=== PATIENT | female | born 1990 | race Caucasian/White ===

== ENCOUNTER → 2022-07-25 10:27 | Outpatient (CLI) | payer OTHER, MEDICAID, SELFPAY | PROVIDERS: PCP Family Medicine; Visit Provider Physician Assistant Medical | DX: H60.90 Unspecified otitis externa, unspecified ear (principal) | CPT/HCPCS: 87070; 87077; 87205 ==

== ENCOUNTER → 2022-11-01 14:00 | Outpatient (CLI) | payer OTHER, MEDICAID, SELFPAY ==
[2022-11-01 19:58] LABS: Add Manual Diff / Slide Review NO; Basophils Absolute Auto 100 /uL (0-100); Basophils Percent Auto 1.1 % (0-2); Eosinophils Absolute Auto 100 /uL (0-450); Eosinophils Percent Auto 1.3 % (2-4); Hematocrit 40.6 % (36-46); Hemoglobin 14.1 g/dL (12.0-16.0); Lymphocytes Absolute Auto 2400 /uL (1100-4500); Lymphocytes Percent Auto 26.5 % (25-40); Mean Corpuscular HGB Conc 34.7 % (30-36); Mean Corpuscular Hemoglobin 32.3 PG (26-34); Mean Corpuscular Volume 93.1 fL (80-100); Monocytes Absolute Auto 500 /uL (0-900); Monocytes Percent Auto 5.2 % (3-14); Neutrophils Absolute Auto 5900 /uL (1500-7000); Neutrophils Percent Auto 65.9 % (50-75); Platelet Count 403 X10^3/uL (150-400); Red Blood Cell Count 4.36 X10^6/uL (4.0-5.2); Red Cell Distribution Width 13.4 % (11.6-14.8)
[2022-11-01 20:27] LABS: Alanine Aminotransferase 25 IU/L (<35); Albumin 4.3 g/dL (3.5-5.0); Albumin Globulin Ratio 1.6 (1.0-2.8); Alkaline Phosphatase 97 U/L (38-126); Aspartate Aminotransferase 28 IU/L (14-36); BUN Creatinine Ratio 15.4 (6-22); Bilirubin Total 0.4 mg/dL (0.2-1.3); Blood Urea Nitrogen 12 mg/dL (7-17); Calcium 9.6 mg/dL (8.4-10.2); Carbon Dioxide 27 mmol/L (22-32); Chloride 102 mmol/L (98-107); Estimated Glomerular Filt Rate > 60 mL/min (>60); Globulin 2.7 g/dL (1.7-4.1); Glucose 82 mg/dL (70-100); HEMOLYSIS 17 (0-50); Potassium 4.4 mmol/L (3.4-5.1); Sodium 137 mmol/L (137-145)
[2022-11-01 20:59] LABS: TSH w/ Reflex to FT4 4.91 uIU/mL (0.47-4.68)
[2022-11-01 21:46] LABS: Free T4, Direct Thyroxine 0.81 ng/dL (0.78-2.19)
== END ==
PROVIDERS: PCP Family Medicine; Visit Provider Physician Assistant Medical
DX: F41.9 Anxiety disorder, unspecified (principal); H62.42 Otitis externa in other diseases classified elsewhere, left ear; H92.02 Otalgia, left ear
CPT/HCPCS: 80053; 82948; 84439; 84443; 85025

== ENCOUNTER → 2023-01-15 11:15 | Outpatient (CLI) | payer OTHER, MEDICAID, SELFPAY ==
[2023-01-15 12:02] LABS: Add Manual Diff / Slide Review NO; Basophils Absolute Auto 100 /uL (0-100); Basophils Percent Auto 0.7 % (0-2); Eosinophils Absolute Auto 0 /uL (0-450); Eosinophils Percent Auto 0.4 % (2-4); Hematocrit 38.8 % (36-46); Hemoglobin 13.6 g/dL (12.0-16.0); Lymphocytes Absolute Auto 1500 /uL (1100-4500); Lymphocytes Percent Auto 21.4 % (25-40); Mean Corpuscular Hemoglobin 32.7 PG (26-34); Mean Corpuscular Volume 93.5 fL (80-100); Monocytes Absolute Auto 400 /uL (0-900); Monocytes Percent Auto 5.5 % (3-14); Neutrophils Absolute Auto 5100 /uL (1500-7000); Platelet Count 350 X10^3/uL (150-400); Red Blood Cell Count 4.15 X10^6/uL (4.0-5.2); Red Cell Distribution Width 12.7 % (11.6-14.8); White Blood Cell Count 7.1 X10^3/uL (4.5-11.0)
[2023-01-15 12:23] LABS: Alanine Aminotransferase 25 IU/L (<35); Albumin 4.5 g/dL (3.5-5.0); Albumin Globulin Ratio 1.6 (1.0-2.8); Alkaline Phosphatase 98 U/L (38-126); Aspartate Aminotransferase 27 IU/L (14-36); BUN Creatinine Ratio 12.3 (6-22); Bilirubin Total 0.4 mg/dL (0.2-1.3); Blood Urea Nitrogen 10 mg/dL (7-17); Calcium 8.9 mg/dL (8.4-10.2); Carbon Dioxide 26 mmol/L (22-32); Chloride 102 mmol/L (98-107); Estimated Glomerular Filt Rate > 60 mL/min (>60); Globulin 2.9 g/dL (1.7-4.1); Glucose 103 mg/dL (70-100); HEMOLYSIS < 15 (0-50); Potassium 3.7 mmol/L (3.4-5.1); Sodium 136 mmol/L (137-145); Total Protein 7.4 g/dL (6.3-8.2)
[2023-01-15 12:39] LABS: HCG Quantitative /Beta subunit < 2.4 mIU/mL
[2023-01-15 12:53] LABS: TSH w/ Reflex to FT4 4.17 uIU/mL (0.47-4.68)
[2023-01-16 06:05] LABS: Labcorp Hemoglobin (Hb) A1c 5.1 % (4.8-5.6)
[2023-01-17 15:11] LABS: Lamotrigine Lamictal 4.4 ug/mL (2.0-20.0)
[2023-02-01 07:09] LABS: Methylphenidate 692 ng/mL (.); Ritalinic Acid >10000 ng/mL (.)
== END ==
PROVIDERS: PCP Family Medicine; Referring Provider Family Medicine; Visit Provider Family Medicine
DX: R42 Dizziness and giddiness (principal); N92.6 Irregular menstruation, unspecified
CPT/HCPCS: 36415; 80053; 80175; 80360; 83036; 84443; 84702; 85025

== ENCOUNTER → 2023-06-04 09:57 | Outpatient (CLI) | payer OTHER, MEDICAID, SELFPAY ==
[2023-06-04 20:29] LABS: HEMOLYSIS < 15 (0-50); Iron 108 ug/dL (37-170)
[2023-06-04 20:43] LABS: Percent Iron Saturation 33 % (15-50); Total Iron Binding Capacity 325 ug/dL (265-497); Transferrin 286 mg/dL (206-381)
[2023-06-04 20:52] LABS: Vitamin D 25 Hydroxy (D3) 35.4 ng/mL (30.0-100.0)
[2023-06-04 21:03] LABS: TSH w/ Reflex to FT4 3.22 uIU/mL (0.47-4.68)
[2023-06-04 21:13] LABS: Ferritin 27 ng/mL (6-137)
== END ==
PROVIDERS: PCP Family Medicine; Visit Provider Family Medicine
DX: G25.3 Myoclonus (principal); G47.10 Hypersomnia, unspecified
CPT/HCPCS: 82306; 82728; 83540; 83550; 84443

== ENCOUNTER → 2023-06-28 12:34 | Outpatient (CLI) | payer OTHER, MEDICAID, SELFPAY ==
--- NOTE | 2023-06-28 12:36 | DI.MRI.S_ITS ---
PROCEDURE: MR HEAD/BRAIN WO/W CON INDICATIONS: myoclonus, TECHNIQUE: Noncontrast axial T1 spin echo, axial T2 fast spin echo, sagittal and axial FLAIR, coronal T2 fast spin echo, axial gradient echo, axial diffusion and ADC through the brain. After the administration of contrast, axial and coronal and sagittal 3D VIBE or T1 spin echo with fat saturation through the brain. COMPARISON: [facility], MR, MR CERVICAL SPINE WO/W CON, 06/28/2023, 13:19. FINDINGS: Image quality: This examination is limited by involuntary motion artifact. CSF Spaces: Basal cisterns are patent. No extra-axial fluid collections. Ventricles are normal in size and shape. Brain: No midline shift. No intracranial bleeds or masses. No abnormal intracranial enhancement. The brainstem appears normal. Diffusion-weighted images demonstrate no acute infarct. No chronic ischemic insults. No abnormal white matter lesions are seen. Normal intravascular flow voids are present. Skull and face: Calvarial marrow is normal in signal. Orbits appear normal. Sinuses: Sinuses and mastoids appear clear. IMPRESSION: No imaging explanation is found for this patient's presenting symptoms. No abnormal white matter lesions are seen. No masses or abnormal enhancement can be seen. No prior territorial infarct can be seen. No findings of acute or subacute infarction can be seen. Dictated by: Josh Oshea M.D. on 06/28/2023 at 13:55 Approved by: Josh Oshea M.D. on 06/28/2023 at 13:56
--- NOTE | 2023-06-28 12:36 | DI.MRI.S_ITS ---
PROCEDURE: MR CERVICAL SPINE WO/W CON INDICATIONS: myoclonus TECHNIQUE: Noncontrast sagittal T1 spin echo and T2 fast spin echo, sagittal STIR, foraminal oblique sagittal T2 fast spin echo, axial gradient echo or T2 fast spin echo through the cervical spine. After the administration of contrast, axial and sagittal T1 spin echo with fat saturation through the cervical spine. COMPARISON: [facility], MR, MR HEAD/BRAIN WO/W CON, 06/28/2023, 13:19. FINDINGS: Image quality: This examination is limited by involuntary motion artifact. Alignment and curvature: There is overall straightening of the normal cervical lordosis. No focal AP alignment abnormality is seen. Marrow: Marrow is normal in overall signal, without suspicious enhancement. No suspicious white matter lesions are seen within the cervical cord. Spinal cord: Visualized spinal cord has normal size and signal. No cerebellar tonsillar herniation. No abnormal intramedullary enhancement. Paraspinous soft tissues: No paravertebral masses or suspicious enhancement. C2-3: Normal appearance. C3-4: Normal appearance. C4-5: Normal appearance. C5-6: The disc height and disk signal are well-preserved. Mild to moderate disc osteophyte complex is seen. Mild facet joint hypertrophy is seen. There is [id number] left-sided and mild right-sided neural foraminal narrowing. No significant central canal narrowing is seen. C6-7: The disc height and disk signal are well-preserved. A mild degree of generalized disc osteophyte complex is seen. Mild facet joint hypertrophy is seen. There is zegf-fi-fkigkxmb left-sided and no significant right-sided neural foraminal narrowing. C7-T1: Normal appearance. IMPRESSION: Focal lower cervical spine degenerative change can be seen, including [id number] neural foraminal narrowing seen on the left at C5-C6 and C6-C7. No abnormal enhancement is seen. Straightening of the normal cervical lordosis is seen, which is commonly observed in patients with muscular spasm. Dictated by: Josh Oshea M.D. on 06/28/2023 at 13:56 Approved by: Josh Oshea M.D. on 06/28/2023 at 13:59
== END ==
PROVIDERS: PCP Family Medicine; Referring Provider Family Medicine; Visit Provider Family Medicine
DX: G25.3 Myoclonus (principal); M47.812 Spondylosis without myelopathy or radiculopathy, cervical region; M48.02 Spinal stenosis, cervical region
CPT/HCPCS: 70553; 72156

== ENCOUNTER 2023-08-02 16:57 | Emergency (ER) | payer OTHER, MEDICAID, SELFPAY ==
[2023-08-02 17:00] VITALS: BP 118/70; PULSE 76; RESP 16; TEMP 36.9; O2SAT 96; BMI 34.4
--- NOTE | 2023-08-02 17:05 | ED.EXTPRO ---
HPI - Extremity Problem <Geoff Akins PA-C - Last Filed: 08/03/23 11:21> General Chief complaint: Extremity Problem,Nontraumatic Stated complaint: tore achilles tendon Time Seen by Provider: 08/02/23 17:05 Source: patient Mode of arrival: Wheelchair History of Present Illness HPI Narrative: This is a 32-year-old female presenting to the emergency department due to right calf pain. She was walking down the stairs when she heard a ?pop?. She was complaining of pain primarily in her mid calf in the right side. Denies any numbness or any other concerning signs or symptoms. Related Data Home Medications Medication Instructions Recorded Confirmed dextroamphetamine-amphetamine 10 1 tab PO BID 07/02/23 07/29/23 mg tablet Previous Rx's Medication Instructions Recorded duloxetine 20 mg capsule,delayed 40 mg (2 x 20 mg) PO DAILY #180 09/24/22 release caps aripiprazole 5 mg tablet 5 mg PO DAILY #30 tabs 02/08/23 albuterol sulfate 90 mcg/actuation 2 puff inhalation Q4-6H #8.5 grams 02/22/23 aerosol inhaler mometasone 50 mcg/actuation nasal 2 spray intranasal BID #17 grams 03/15/23 spray fluconazole 150 mg tablet 150 mg PO QWEEK #3 tabs 04/01/23 levomefolate calcium 15 mg tablet 15 mg PO DAILY #30 tabs 05/09/23 (L-Methylfolate) ipratropium bromide 42 mcg (0.06 2 spray intranasal QID #15 mL 07/29/23 %) nasal spray Allergies Allergy/AdvReac Type Severity Reaction Status Date / Time amoxicillin Allergy Intermediate Rash Verified 07/29/23 14:13 Review of Systems <Geoff Akins PA-C - Last Filed: 08/03/23 11:21> Review of Systems Narrative: GENERAL: Denies chills, fatigue, malaise, fever, sweats. HEENT: Denies sinus pain, ear pain, sore throat, difficulty swallowing, dizziness. RESPIRATORY: Denies dyspnea, cough, wheezing, hemoptysis, sputum. CARDIOVASCULAR: Denies chest pain, palpitations, orthopnea, edema, GASTROINTESTINAL: Denies nausea, vomiting, abdominal pain, diarrhea, constipation, melena. : Denies dysuria, frequency, incontinence, hematuria, urinary retention. MUSCULOSKELETAL: Reports right calf pain SKIN: Denies rash, skin lesions, or other NEUROLOGIC: Denies weakness, headache, numbness, change in speech, confusion, seizures, incoordination. PSYCHIATRIC: No concerning psychosocial issues. 12 point review of systems is negative except for those stated above Patient History <Geoff Akins PA-C - Last Filed: 08/03/23 11:21> Medical History (Updated 08/02/23 @ 18:38 by Geoff Akins PA-C) Myoclonus Unemployment OCD (obsessive compulsive disorder) Acne PTSD (post-traumatic stress disorder) Fractures Chicken pox Depression, major ADHD (attention deficit hyperactivity disorder), combined type Bipolar 1 disorder Asthma, exercise induced Surgical History (Updated 07/07/22 @ 21:02 by Angelica Crow) Anesthesia History of ankle surgery (~2017) Family History (Updated 07/07/22 @ 21:05 by Angelica Crow) Father Suicide Mental health problem Mother Mental health problem Sister History of bipolar disorder Grandfather Diabetes mellitus Grandmother History of bipolar disorder Suicide Grandmother History of heart disease Social History Smoking Status: Current every day smoker additional social history: FHX: strong FH of bipolar including sister SHX: ETOH 2 shots on most nights (states this is much less than she used to drink) + Marjuana denies other drugs currently homeless: living in a storage unit with her boyfriend unable to hold down a job due to the myoclonic jerking [facility] 01/29/2023 Smoking Status: Current every day smoker tobacco type: vaping Substance Use Type: marijuana Exam <Geoff Akins PA-C - Last Filed: 08/03/23 11:21> Narrative Exam Narrative: GENERAL: Well-developed patient, in mild distress. HEAD: Atraumatic. Normocephalic. EYES: Pupils equal round and reactive. Extraocular motions intact. No scleral icterus. No injection or drainage. ENT: Nose without bleeding, purulent drainage. Throat without erythema, tonsillar hypertrophy or exudate. Airway patent. NECK: Trachea midline. Non tender EXTREMITIES: Right calf tenderness to palpation. Patient was still able to plantar and dorsal flex at her right ankle. Neurovascularly intact throughout. Pringle test normal NEURO: AOx3. SKIN: No rash or erythema of visible areas Initial Vital Signs Initial Vital Signs: Vital Signs Temperature 98.4 F 08/02/23 17:00 Pulse Rate 76 08/02/23 17:00 Respiratory Rate 16 08/02/23 17:00 Blood Pressure 118/70 08/02/23 17:00 Pulse Oximetry 96 08/02/23 17:00 Oxygen Delivery Method Room Air 08/02/23 17:00 <Michael Vázquez DO - Last Filed: 08/03/23 13:53> Initial Vital Signs Initial Vital Signs: Vital Signs Temperature 98.4 F 08/02/23 17:00 Pulse Rate 76 08/02/23 17:00 Respiratory Rate 16 08/02/23 17:00 Blood Pressure 118/70 08/02/23 17:00 Pulse Oximetry 96 08/02/23 17:00 Oxygen Delivery Method Room Air 08/02/23 17:00 Course <Geoff Akins PA-C - Last Filed: 08/03/23 11:21> Orders Ordered: ED Orders 08/02/23 17:13 XR ankle RT min 3V Stat Vital Signs Vital signs: Vital Signs - 8 hr 08/02/23 17:00 Temperature 98.4 F Pulse Rate 76 Respiratory Rate 16 Blood Pressure 118/70 Pulse Oximetry 96 Oxygen Delivery Method Room Air <DO Demetria Herrera Last Filed: 08/03/23 13:53> Orders Ordered: ED Orders 08/02/23 17:13 XR ankle RT min 3V Stat Vital Signs Vital signs: Vital Signs - 8 hr 08/02/23 17:00 Temperature 98.4 F Pulse Rate 76 Respiratory Rate 16 Blood Pressure 118/70 Pulse Oximetry 96 Oxygen Delivery Method Room Air MDM - Extremity (Nontraumatic) <Geoff Akins PA-C - Last Filed: 08/03/23 11:21> Imaging Data Extremity x-ray #1: Radiologist's Impression: [address] [address] XRay Report Signed Patient: Kathy Pulido MR#: [id number] : 1990 Acct:[id number] Age/Sex: 32 / F Date of Service: 08/02/23 Loc: ED Accession Number: [id number] Procedure: XR ankle RT min 3V Ordering Provider: Geoff Akins P.A-C PROCEDURE: XR ANKLE RT MIN 3V INDICATIONS: R ankle pain TECHNIQUE: 3 views of the ankle were acquired. COMPARISON: None. FINDINGS: Bones: No fractures or dislocations. Ankle mortise is normally aligned. No suspicious bony lesions. Soft tissues: No tibiotalar joint effusion. Achilles tendon appears normal. IMPRESSION: No acute bony abnormality or significant effusion. If clinical symptoms persist or clinical suspicion for pathology is high, a repeat examination in 7-10 days, or advanced imaging such as CT or MRI is suggested for further evaluation. Dictated by: Michael Addison M.D. on 08/02/2023 at 18:26 Approved by: Michael Addison M.D. on 08/02/2023 at 18:27 [facility] Narrative Medical decision making narrative: ED course: This is a 32-year-old female presents emergency department due to right calf pain after walking in the stairs. X-rays of the right ankle were negative for any fractures. Patient presented with concerns for a torn Achilles tendon. With palpation there was no significant laxity around the Achilles tendon area. Pringle test reassuring. She has not calf tenderness with palpation suspect this is muscular in nature. Patient was placed in a walking boot and advised to follow up with the primary care provider for pain if symptoms continue. CC: Right calf pain Complicating co-morbidities: None Data collected from: Previous notes Medical records reviewed: Patient has not been here for similar symptoms in the past. Differential considered, but not limited to: Achilles tendon rupture, calf strain, ankle fracture Exam documented above, pertinent findings include: Reassuring Pringle test Lab Test results independently reviewed as above. Pertinent findings: None obtained Imaging studies independently reviewed: Right ankle x-ray negative Scores Used: None MIPS Elements: None Consultations: None Treatments: Walking boot Re-evaluations: None Discussion: Discussed plan with the patient was comfortable with the plan Diagnosis: Calf strain Disposition: see below, along with detailed discharge instructions that have been reviewed with patient as well as indications for ED re-evaluation and additional outpatient follow up Discharge Plan Departure Patient Disposition: Home Clinical Impression: Calf pain Activity Restrictions/Additional Instructions: Thank you for coming to the [facility] Emergency Department today. Your x-ray shows no evidence of any fractures. I suspect there is a very low likelihood of any kind of Achilles tendon rupture. I think this should get better with elevation, rest, ice, ibuprofen. The boot may also help with ambulation. If the pain continues may follow up with the primary care provider for possible advanced imaging. Please return to the emergency department if you develop any significant new and worsening pain, numbness, or any other concerning signs or symptoms. I hope you feel better soon. Please follow up with your primary care provider within a week if your symptoms continue. If you do not have a primary care provider please contact the [facility] Resource line at [phone]. They will ask some questions about your medical history and help you get set up with a provider in the community. Prescriptions: No Action duloxetine 20 mg capsule,delayed release(DR/EC) 40 mg PO DAILY Qty: 180 3RF fluconazole 150 mg tablet 150 mg PO QWEEK Qty: 3 0RF Rx Instructions: as a single dose- do not take daily. repeat every 7 days for two additional doses ipratropium bromide 42 mcg (0.06 %) spray,non-aerosol 2 spray intranasal QID Qty: 15 1RF Rx Instructions: administer into each nostril aripiprazole 5 mg tablet 5 mg PO DAILY Qty: 30 5RF Rx Instructions: new dose: take every night albuterol sulfate 90 mcg/actuation HFA aerosol inhaler 2 puff inhalation Q4-6H Qty: 8.5 2RF Rx Instructions: EMERGENCY INHALER mometasone 50 mcg/actuation spray,non-aerosol 2 spray intranasal BID Qty: 17 3RF Rx Instructions: administer into each nostril- STOP AFRIN spray after 3 days and continue taking this spray. levomefolate calcium [L-Methylfolate] 15 mg tablet 15 mg PO DAILY Qty: 30 11RF dextroamphetamine-amphetamine 10 mg tablet 1 tab PO BID Referrals: Celina Escamilla MD [Primary Care Provider] - Stand Alone Forms: Patient Portal/API ED Sign-out <Michael Vázquez, DO - Last Filed: 08/03/23 13:53> Cosign ED Attending Cosignature Attestation: Dr Vázquez Co-Sign Statement: I was available for consultation during this patient's emergency department visit. This chart is signed by myself for administrative purposes only. I did not have direct contact with this patient during this visit. They were seen independently by the APC.
--- NOTE | 2023-08-02 17:13 | DI.RAD.S_ITS ---
PROCEDURE: XR ANKLE RT MIN 3V INDICATIONS: R ankle pain TECHNIQUE: 3 views of the ankle were acquired. COMPARISON: None. FINDINGS: Bones: No fractures or dislocations. Ankle mortise is normally aligned. No suspicious bony lesions. Soft tissues: No tibiotalar joint effusion. Achilles tendon appears normal. IMPRESSION: No acute bony abnormality or significant effusion. If clinical symptoms persist or clinical suspicion for pathology is high, a repeat examination in 7-10 days, or advanced imaging such as CT or MRI is suggested for further evaluation. Dictated by: Michael Addison M.D. on 08/02/2023 at 18:26 Approved by: Michael Addison M.D. on 08/02/2023 at 18:27
[2023-08-02 18:43] VITALS: BP 130/68; PULSE 62; RESP 18; O2SAT 97
== END 2023-08-02 18:55 | disposition home or self-care (01) ==
PROVIDERS: Emergency Provider Physician Assistant Medical; PCP Family Medicine
DX: M79.604 Pain in right leg (principal); Z79.899 Other long term (current) drug therapy
CPT/HCPCS: 73610; 99283

== ENCOUNTER → 2023-10-01 09:30 | Outpatient (CLI) | payer OTHER, MEDICAID, SELFPAY ==
[2023-10-01 19:38] LABS: Cholesterol 228 mg/dL (140-199); HDL Cholesterol 66 mg/dL (40-60); LDL Cholesterol Calculated 152 mg/dL (<100); Triglycerides 48 mg/dL (35-150)
[2023-10-01 20:07] LABS: Hemoglobin A1C% w Est Avg Glu 4.9 % (4.0-6.0)
[2023-10-02 16:58] LABS: Vitamin D 25 Hydroxy (D3) 34.4 ng/mL (30.0-100.0)
== END ==
PROVIDERS: PCP Family Medicine; Visit Provider Nurse Practitioner Psychiatric/Mental Health
DX: F90.0 Attention-deficit hyperactivity disorder, predominantly inattentive type (principal); Z79.899 Other long term (current) drug therapy
CPT/HCPCS: 80061; 81025; 82306; 83036

== ENCOUNTER → 2023-10-14 08:37 | Outpatient (CLI) | payer OTHER, MEDICAID, SELFPAY | PROVIDERS: PCP Family Medicine; Visit Provider Family Medicine | DX: R10.2 Pelvic and perineal pain (principal); R39.89 Other symptoms and signs involving the genitourinary system | CPT/HCPCS: 81002 ==

== ENCOUNTER → 2023-10-16 11:05 | Outpatient (CLI) | payer OTHER, MEDICAID, SELFPAY | PROVIDERS: PCP Family Medicine; Visit Provider Family Medicine | DX: R10.2 Pelvic and perineal pain (principal); R39.89 Other symptoms and signs involving the genitourinary system | CPT/HCPCS: 87086 ==

== ENCOUNTER → 2023-12-16 09:28 | Outpatient (CLI) | payer OTHER, MEDICAID, SELFPAY | PROVIDERS: PCP Family Medicine; Visit Provider Physician Assistant | DX: R35.0 Frequency of micturition (principal); R30.9 Painful micturition, unspecified | CPT/HCPCS: 81002; 87077; 87086; 87147 ==

== ENCOUNTER → 2024-02-11 14:47 | Outpatient (CLI) | payer OTHER, MEDICAID, SELFPAY | PROVIDERS: PCP Family Medicine; Visit Provider Nurse Practitioner Adult Health | DX: R82.90 Unspecified abnormal findings in urine (principal); R39.15 Urgency of urination; R30.9 Painful micturition, unspecified | CPT/HCPCS: 87086 ==

== ENCOUNTER → 2024-03-13 09:11 | Outpatient (CLI) | payer OTHER, MEDICAID, SELFPAY ==
[2024-03-13 18:42] LABS: Add Manual Diff / Slide Review NO; Basophils Absolute Auto 100 /uL (0-100); Basophils Percent Auto 0.8 % (0-2); Eosinophils Absolute Auto 200 /uL (0-450); Eosinophils Percent Auto 3.4 % (2-4); Hematocrit 43.1 % (36-46); Hemoglobin 14.9 g/dL (12.0-16.0); Lymphocytes Absolute Auto 1900 /uL (1100-4500); Lymphocytes Percent Auto 28.7 % (25-40); Mean Corpuscular HGB Conc 34.7 % (30-36); Mean Corpuscular Hemoglobin 32.5 PG (26-34); Mean Corpuscular Volume 93.7 fL (80-100); Monocytes Absolute Auto 400 /uL (0-900); Monocytes Percent Auto 5.5 % (3-14); Neutrophils Absolute Auto 4200 /uL (1500-7000); Neutrophils Percent Auto 61.6 % (50-75); Platelet Count 335 X10^3/uL (150-400); Red Cell Distribution Width 13.2 % (11.6-14.8); White Blood Cell Count 6.7 X10^3/uL (4.5-11.0)
[2024-03-13 19:31] LABS: Alanine Aminotransferase 21 IU/L (<35); Albumin 4.1 g/dL (3.5-5.0); Albumin Globulin Ratio 1.4 (1.0-2.8); Alkaline Phosphatase 81 U/L (38-126); Aspartate Aminotransferase 26 IU/L (14-36); BUN Creatinine Ratio 7.2 (6-22); Bilirubin Total 0.6 mg/dL (0.2-1.3); Blood Urea Nitrogen 6 mg/dL (7-17); Calcium 9.6 mg/dL (8.4-10.2); Carbon Dioxide 24 mmol/L (22-32); Chloride 105 mmol/L (98-107); Cholesterol 206 mg/dL (140-199); Estimated Glomerular Filt Rate > 60 mL/min (>60); Glucose 83 mg/dL (70-100); HDL Cholesterol 56 mg/dL (40-60); HEMOLYSIS 34 (0-50); LDL Cholesterol Calculated 137 mg/dL (<100); Potassium 4.5 mmol/L (3.4-5.1); Sodium 135 mmol/L (137-145); Total Protein 7.1 g/dL (6.3-8.2); Triglycerides 67 mg/dL (35-150)
[2024-03-13 19:49] LABS: Hemoglobin A1C% w Est Avg Glu 4.9 % (4.0-6.0)
[2024-03-13 20:10] LABS: Ferritin 39 ng/mL (6-137)
[2024-03-14 16:15] LABS: Free T4, Direct Thyroxine 1.19 ng/dL (0.78-2.19)
== END ==
PROVIDERS: PCP Family Medicine; Visit Provider Family Medicine
DX: G47.10 Hypersomnia, unspecified (principal); G47.33 Obstructive sleep apnea (adult) (pediatric); G47.61 Periodic limb movement disorder; E78.2 Mixed hyperlipidemia; F31.9 Bipolar disorder, unspecified; Z51.81 Encounter for therapeutic drug level monitoring
CPT/HCPCS: 80053; 80061; 82728; 83036; 84439; 84443; 85025

== ENCOUNTER → 2024-08-18 11:54 | Outpatient (CLI) | payer OTHER, SELFPAY ==
[2024-08-18 19:07] LABS: Hemoglobin A1C% w Est Avg Glu 4.8 % (4.0-6.0)
[2024-08-18 19:20] LABS: Alanine Aminotransferase 34 IU/L (<35); Albumin 4.4 g/dL (3.5-5.0); Albumin Globulin Ratio 1.8 (1.0-2.8); Alkaline Phosphatase 71 U/L (38-126); Aspartate Aminotransferase 31 IU/L (14-36); BUN Creatinine Ratio 12.2 (6-22); Bilirubin Total 0.6 mg/dL (0.2-1.3); Blood Urea Nitrogen 10 mg/dL (7-17); Calcium 9.4 mg/dL (8.4-10.2); Carbon Dioxide 27 mmol/L (22-32); Chloride 105 mmol/L (98-107); Estimated Glomerular Filt Rate > 60 mL/min (>60); Globulin 2.5 g/dL (1.7-4.1); Glucose 80 mg/dL (70-100); HEMOLYSIS < 15 (0-50); Potassium 4.2 mmol/L (3.4-5.1); Sodium 140 mmol/L (137-145); Total Protein 6.9 g/dL (6.3-8.2)
[2024-08-18 19:32] LABS: LDL Cholesterol Direct 133 mg/dL (<100)
[2024-08-18 19:44] LABS: Free T3, Triiodothyronine Free 3.74 pg/mL (2.77-5.27); Free T4, Direct Thyroxine 0.98 ng/dL (0.78-2.19)
[2024-08-18 19:57] LABS: Thyroid Stimulating Hormone 1.74 uIU/mL (0.47-4.68)
== END ==
PROVIDERS: PCP Family Medicine; Visit Provider Family Medicine
DX: R79.89 Other specified abnormal findings of blood chemistry (principal); E78.2 Mixed hyperlipidemia; G47.61 Periodic limb movement disorder; Z79.899 Other long term (current) drug therapy; Z51.81 Encounter for therapeutic drug level monitoring
CPT/HCPCS: 80053; 83036; 83721; 84439; 84443; 84481; 86376; 86800

== ENCOUNTER 2024-11-04 18:02 | Emergency (ER) | payer OTHER, SELFPAY ==
[2024-11-04 18:14] VITALS: BP 130/76; PULSE 84; RESP 20; TEMP 36.6; O2SAT 97; BMI 34.9
--- NOTE | 2024-11-04 18:25 | DI.CT.S_ITS ---
PROCEDURE: CT HEAD/BRAIN WO CON INDICATIONS: hit head TECHNIQUE: Noncontrast 4.5 mm thick angled axial sections acquired from the foramen magnum to the vertex, with coronal and sagittal reformats. For radiation dose reduction, the following was used: automated exposure control, adjustment of mA and/or kV according to patient size. COMPARISON: None. FINDINGS: Image quality: Diagnostic. CSF spaces: Basal cisterns are patent. No extra-axial fluid collections. Ventricles are normal in size and shape. Brain: No midline shift. No intracranial mass effect or hemorrhage. Branham-white matter interface is normal. Skull and face: Calvarium and visualized facial bones are intact, without suspicious lesions. Sinuses: Visualized sinuses and mastoids are clear. IMPRESSION: No acute intracranial pathology. Dictated by: Otto Aaron M.D. on 11/04/2024 at 18:39 Approved by: Otto Aaron M.D. on 11/04/2024 at 18:39
[2024-11-04 19:01] VITALS: BP 119/84; PULSE 72; RESP 18; O2SAT 100
[2024-11-04 19:30] VITALS: BP 107/61; PULSE 71; RESP 16; O2SAT 98
[2024-11-04 20:00] VITALS: PULSE 70; O2SAT 100
[2024-11-04 20:11] VITALS: PULSE 69; RESP 16; O2SAT 100
--- NOTE | 2024-11-04 20:11 | ED_ITS ---
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 Since her transport by [facility] here she has improvement in her headache pain, and no longer feels confused. No focal weakness to face arm or leg. No focal numbness to face arm or leg. No shaking or seizure-like activity. She has not taken any medications for her symptoms. She also has left upper shoulder area discomfort. 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,delayed release deficiency #90 tabs ipratropium bromide 21 mcg (0.03 2 spray intranasal TID PRN for 04/03/24 %) nasal spray congestion #30 mL albuterol sulfate 90 mcg/actuation 2 puff inhalation Q4-6H #8.5 grams 08/25/24 aerosol inhaler methocarbamol 500 mg tablet 500 mg PO TID 7 days #21 tabs 11/04/24 Allergies Allergy/AdvReac Type Severity Reaction Status Date / Time amoxicillin Allergy Intermediate Rash Verified 11/04/24 14:51 Patient History Medical History (Updated 11/04/24 @ 20:18 by Sher Pringle MD) UTI (urinary tract infection) Myoclonus Unemployment OCD (obsessive compulsive disorder) Acne PTSD (post-traumatic stress disorder) Fractures Chicken pox Depression, major ADHD (attention deficit hyperactivity disorder), combined type Bipolar 1 disorder Asthma, exercise induced Surgical History (Updated 07/07/22 @ 21:02 by Angelica Crow) Anesthesia History of ankle surgery (~2017) Family History (Updated 07/07/22 @ 21:05 by Angelica Crow) Father Suicide Mental health problem Mother Mental health problem Sister History of bipolar disorder Grandfather Diabetes mellitus Grandmother History of bipolar disorder Suicide Grandmother History of heart disease Social History additional social history: working at [employer] a few hours per week. 09/2023 Finished [employer] course 08/2023 FHX: strong FH of bipolar including sister SHX: ETOH 2 shots on most nights (states this is much less than she used to drink) + Marjuana denies other drugs currently homeless: living in a storage unit with her boyfriend unable to hold down a job due to the myoclonic jerking [facility] 01/29/2023 tobacco type: vaping Exam Narrative Exam Narrative: GENERAL: Well-developed patient, in mild distress. HEAD: Atraumatic. Normocephalic. Mild tenderness left upper scalp vertex, without laceration or abrasion or crepitance, no significant swelling EYES: Pupils equal round and reactive. Extraocular motions intact. No scleral icterus. No injection or drainage. ENT: Nose without bleeding, purulent drainage. Throat without erythema, tonsillar hypertrophy or exudate. Airway patent. NECK: Trachea midline. Non tender posteriorly along midline or paracervical musculature. CARDIOVASCULAR: Regular rate and rhythm without murmurs, gallops, or rubs. RESPIRATORY: Clear to auscultation. Breath sounds equal bilaterally. No wheezes, rales, or rhonchi. GASTROINTESTINAL: Abdomen soft, non-tender, nondistended. EXTREMITIES: Some tenderness to the left superior trapezius. No tenderness to the left anterior deltoid, no shoulder gross deformity, no tenderness along the left clavicle. BACK: Nontender without deformity or crepitance. No flank tenderness. NEURO: AOx3. Motor functions grossly nonfocal. SKIN: No rash or erythema of visible areas Initial Vital Signs Initial Vital Signs: Vital Signs Temperature 98 F 11/04/24 18:14 Pulse Rate 84 11/04/24 18:14 Respiratory Rate 20 11/04/24 18:14 Blood Pressure 130/76 11/04/24 18:14 Pulse Oximetry 97 11/04/24 18:14 Oxygen Delivery Method Room Air 11/04/24 18:14 Course Orders Ordered: Discontinued Medications Ibuprofen (Ibuprofen 400 Mg Tablet) 400 mg PO NOW ONE Stop: 11/04/24 20:15 Last Admin: 11/04/24 20:19 Dose: 400 mg Documented By: AB Methocarbamol (Methocarbamol 500 Mg Tablet) 500 mg PO NOW ONE Stop: 11/04/24 20:15 Last Admin: 11/04/24 20:19 Dose: 500 mg Documented By: AB Vital Signs Vital signs: Vital Signs - 8 hr 11/04/24 18:14 11/04/24 19:01 11/04/24 19:30 Temperature 98 F Pulse Rate 84 72 71 Respiratory Rate 20 18 16 Blood Pressure 130/76 119/84 107/61 Pulse Oximetry 97 100 98 Oxygen Delivery Method Room Air Room Air 11/04/24 20:00 11/04/24 20:11 11/04/24 20:12 Temperature Pulse Rate 70 69 Respiratory Rate 16 Blood Pressure 107/64 Pulse Oximetry 100 100 Oxygen Delivery Method Room Air MDM - Head Injury Imaging Data CT scan - head: Radiologist's Impression: [place] [address] CT Scan Report Signed Patient: Kathy Pulido MR#: [id number] : 1990 Acct:[id number] Age/Sex: 34 / F Date of Service: 11/04/24 Loc: ED Accession Number: [id number] Procedure: CT head/brain wo con Ordering Provider: Butch Edmonds MD PROCEDURE: CT HEAD/BRAIN WO CON INDICATIONS: hit head TECHNIQUE: Noncontrast 4.5 mm thick angled axial sections acquired from the foramen magnum to the vertex, with coronal and sagittal reformats. For radiation dose reduction, the following was used: automated exposure control, adjustment of mA and/or kV according to patient size. COMPARISON: None. FINDINGS: Image quality: Diagnostic. CSF spaces: Basal cisterns are patent. No extra-axial fluid collections. Ventricles are normal in size and shape. Brain: No midline shift. No intracranial mass effect or hemorrhage. [place]- white matter interface is normal. Skull and face: Calvarium and visualized facial bones are intact, without suspicious lesions. Sinuses: Visualized sinuses and mastoids are clear. IMPRESSION: No acute intracranial pathology. Dictated by: Otto Aaron M.D. on 11/04/2024 at 18:39 Approved by: Otto Aaron M.D. on 11/04/2024 at 18:39 [facility] Narrative Medical decision making narrative: Metal tent pole blow to the head, no loss of consciousness but pe rsisting/increasing headache, seemed to be confused at [facility], LNI forms initiated, referred here for brain imaging. CT brain noncontrast study, no acute changes. Patient felt better, offered oral ibuprofen which was taken. We discussed concussion symptoms, need for cognitive rest and physical rest for the next 48 hours. Follow up with [facility] as planned tomorrow. Return precautions discussed Discharge Plan Departure Patient Disposition: Home Clinical Impression: Contusion of scalp, Concussion, Strain of left trapezius muscle Instructions: DI for Concussion, DI for Muscle Strain, DI for Closed Head Injury Activity Restrictions/Additional Instructions: Heavy tent pole struck top of left head noon today, increasing headache pain, and confusion, referred for neuro imaging. CT head noncontrast study showed no acute changes. See radiology report, copy given to patient. Some confusion that seems to be better now, headache pain also seems to be better now, but symptoms concerning for concussion. We discussed physical rest and cognitive rest and repeat evaluation for further clearance to resume in her increased activities. Patient states that she is due to be re-evaluated at [facility] [place] tomorrow. Off work until further evaluation and clearance. Left superior trapezius strain. Trial of muscle relaxant, Robaxin given, prescription sent to her pharmacy on [facility]. [id number] ibuprofen to use as needed. Recheck tomorrow in [facility] as planned. Return precautions discussed. Discharged home with significant other adult. Prescriptions: New methocarbamol 500 mg tablet 500 mg PO TID 7 Days Qty: 21 0RF No Action duloxetine 20 mg capsule,delayed release(DR/EC) 40 mg PO DAILY Qty: 180 3RF ipratropium bromide 21 mcg (0.03 %) spray,non-aerosol 2 spray intranasal TID PRN (Reason: for congestion) Qty: 30 12RF Rx Instructions: administer into each nostril for nasal drainage. take every night before using CPAP ferrous sulfate 325 mg (65 mg iron) tablet,delayed release (DR/EC) 325 mg PO DAILY Qty: 90 0RF Rx Instructions: or every other day with evening meal + citrus (vitamin C) dextroamphetamine-amphetamine 20 mg capsule,extended release 24hr 1 cap PO QAM dextroamphetamine-amphetamine 20 mg tablet 1 tab PO DAILY aripiprazole 10 mg tablet 10 mg PO DAILY albuterol sulfate 90 mcg/actuation HFA aerosol inhaler 2 puff inhalation Q4-6H Qty: 8.5 2RF Rx Instructions: EMERGENCY INHALER Referrals: Celina Escamilla MD [Primary Care Provider] - Stand Alone Forms: Patient Portal/API/Survey
[2024-11-04 20:12] VITALS: BP 107/64
[2024-11-04] MEDS: methocarbamoL 500 MG TABLET PO (20:19)
[2024-11-04] MEDS: IBUPROFEN 400 MG TABLET PO (20:19)
== END 2024-11-04 20:25 | disposition home or self-care (01) ==
PROVIDERS: Emergency Provider Emergency Medicine; PCP Family Medicine
DX: S06.0X0A Concussion without loss of consciousness, initial encounter (principal); S46.812A Strain of other muscles, fascia and tendons at shoulder and upper arm level, left arm, initial encounter; W20.8XXA Other cause of strike by thrown, projected or falling object, initial encounter; Y92.129 Unspecified place in nursing home as the place of occurrence of the external cause; Y99.0 Civilian activity done for income or pay
CPT/HCPCS: 70450; 99283; 99284

== ENCOUNTER → 2025-01-19 10:55 | Outpatient (CLI) | payer OTHER, SELFPAY | LOC: LAB 11:10 | PROVIDERS: PCP Family Medicine; Visit Provider Physician Assistant | DX: R39.15 Urgency of urination (principal) | CPT/HCPCS: 87086 ==

== ENCOUNTER 2025-01-22 09:30 | Emergency (ER) | payer OTHER, SELFPAY ==
[2025-01-22 10:00] VITALS: BP 126/86; PULSE 75; RESP 17; TEMP 36.7; O2SAT 100; BMI 35.1
[2025-01-22 10:11] LABS: Appearance Urine UA CLEAR; Bilirubin Urine UA NEGATIVE (NEGATIVE); Color Urine UA YELLOW; Glucose Urine UA NEGATIVE (Negative); Ketones Urine UA NEGATIVE (NEGATIVE); Leukocyte Esterase Urine UA NEGATIVE (NEGATIVE); Occult Blood Urine UA NEGATIVE (Negative); Protein Urine UA NEGATIVE (Negative); Specific Gravity Urine UA 1.020 (1.000-1.035); Urobilinogen Urine UA 0.2 E.U./dL (0.2)
[2025-01-22 10:18] LABS: Culture Indicated Urine Cult Not Indicated; Nitrite Urine UA NEGATIVE (Negative); pH Urine UA 5.5 (4.5-8.0)
--- NOTE | 2025-01-22 11:09 | ED.FEMALEGU ---
HPI - Female Genitourinary <Shirlene Valdovinos PA-C - Last Filed: 01/22/25 18:33> General Chief complaint: Urogenital-Female Stated complaint: lower right side stomach pain x 6 days Time Seen by Provider: 01/22/25 11:08 Source: patient Mode of arrival: Family Vehicle History of Present Illness HPI Narrative: Is a 34-year-old woman with history of UTI, obesity, HLD, DEIDRE with IUD in place presenting with concern for what she describes as right low abdominal/hip pain. Patient states that she started having this pain on Saturday morning 6 days ago. It was worse when she is walking in her leg moves back and also is painful when she is lifting things. She was concerned for a possible hernia. She does state that she saw her PCP earlier this week and at that time was diagnosed with a UTI. She did have UTI symptoms of urgency frequency and some burning with urination. These symptoms have improved she has been on azo and Macrobid for 3 days. She states she has been having normal bowel movements and has not had any vomiting or change in appetite or oral intake. She does state that she had 1 episode of nausea and what felt like dizziness associated with pain when she was lifting at work yesterday. She describes the pain as not present at all unless certain movements occur and when it does hurt she says it feels like ?someone is punching me?. Patient states that she is not concern for STIs. She denies any new vaginal discharge, itching burning of the vaginal area or any pelvic pain. She does state that her urine turned orange and red looking after she started taking azo. She points to the anterior medial hip at a very specific spot stating this is the location of her pain. She has not had any flank pain or other abdominal pain denies fevers chills or other symptoms. 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,delayed release deficiency #90 tabs nitrofurantoin macrocrystal 100 mg 100 mg PO BID 7 days #14 caps 01/19/25 capsule Allergies Allergy/AdvReac Type Severity Reaction Status Date / Time amoxicillin Allergy Intermediate Rash Verified 01/22/25 10:06 Review of Systems <Shirlene Valdovinos PA-C - Last Filed: 01/22/25 18:33> Review of Systems Narrative: See HPI Patient History <Shirlene Valdovinos PA-C - Last Filed: 01/22/25 18:33> Medical History UTI (urinary tract infection) Myoclonus Unemployment OCD (obsessive compulsive disorder) Acne PTSD (post-traumatic stress disorder) Fractures Chicken pox Depression, major ADHD (attention deficit hyperactivity disorder), combined type Bipolar 1 disorder Asthma, exercise induced Surgical History Anesthesia History of ankle surgery (~2017) Family History Father Suicide Mental health problem Mother Mental health problem Sister History of bipolar disorder Grandfather Diabetes mellitus Grandmother History of bipolar disorder Suicide Grandmother History of heart disease tobacco type: cigarettes and vaping Exam <Shirlene Valdovinos PA-C - Last Filed: 01/22/25 18:33> Narrative Exam Narrative: GENERAL: [34] year old patient appears stated age. Well-developed patient, in mild distress. HEAD: Atraumatic. Normocephalic. EYES: Pupils equal round and reactive. Extraocular motions intact. No scleral icterus. No injection or drainage. ENT: Nose without bleeding, purulent drainage. Airway patent. NECK: Trachea midline. CARDIOVASCULAR: Regular rate and rhythm without murmurs, gallops, or rubs. RESPIRATORY: Clear to auscultation. Breath sounds equal bilaterally. No wheezes, rales, or rhonchi. GASTROINTESTINAL: Abdomen soft, very mild discomfort with palpation suprapubically and just below the umbilicus. Otherwise abdomen is Non-tender, nondistended negative McBurney's point tenderness negative Rovsing negative Lucero's sign, there is no CVA/flank tenderness. Patient does have a mobile palpable tender mass that is approximately 0.5 cm x 1.5 cm located just medial to her right anterior superior iliac bone. The location of this tender small mass does a line with the reported location of patient's pain. Possibly represents lymph node or muscular inflammation versus less likely hernia. EXTREMITIES: See gastrointestinal. No edema or joint tenderness. BACK: Nontender without deformity or crepitance. No flank tenderness. NEURO: AOx3. SKIN: No rash or erythema of visible areas Initial Vital Signs Initial Vital Signs: Vital Signs Temperature 98.0 F 01/22/25 10:00 Pulse Rate 75 01/22/25 10:00 Respiratory Rate 17 01/22/25 10:00 Blood Pressure 126/86 01/22/25 10:00 Pulse Oximetry 100 01/22/25 10:00 Oxygen Delivery Method Room Air 01/22/25 10:00 <Butch Stallworth MD - Last Filed: 01/23/25 15:05> Initial Vital Signs Initial Vital Signs: Vital Signs Temperature 98.0 F 01/22/25 10:00 Pulse Rate 75 01/22/25 10:00 Respiratory Rate 17 01/22/25 10:00 Blood Pressure 126/86 01/22/25 10:00 Pulse Oximetry 100 01/22/25 10:00 Oxygen Delivery Method Room Air 01/22/25 10:00 Course <Shirleen Valdovinos PA-C - Last Filed: 01/22/25 18:33> Orders Ordered: Discontinued Medications Ondansetron HCl (Ondansetron 4 Mg/2 Ml Inj) 4 mg IV NOW PRN PRN Reason: Nausea And Vomiting Ondansetron HCl (Ondansetron 4 Mg Odt) 4 mg PO NOW PRN PRN Reason: Nausea And Vomiting Vital Signs Vital signs: Vital Signs - 8 hr 01/22/25 12:02 Pulse Rate 65 Respiratory Rate 16 Blood Pressure 101/70 Pulse Oximetry 99 Oxygen Delivery Method Room Air <Butch Stallworth MD - Last Filed: 01/23/25 15:05> Orders Ordered: Discontinued Medications Ondansetron HCl (Ondansetron 4 Mg/2 Ml Inj) 4 mg IV NOW PRN PRN Reason: Nausea And Vomiting Ondansetron HCl (Ondansetron 4 Mg Odt) 4 mg PO NOW PRN PRN Reason: Nausea And Vomiting Vital Signs Vital signs: Vital Signs - 8 hr 01/22/25 12:02 Pulse Rate 65 Respiratory Rate 16 Blood Pressure 101/70 Pulse Oximetry 99 Oxygen Delivery Method Room Air MDM - Female Genitourinary <Shirlene Valdovinos PA-C - Last Filed: 01/22/25 18:33> Differential Diagnosis Differential diagnosis: Likely urinary tract infection and other (Lymphadenopathy, pulled muscle, hernia) Medical Records Attestation: I reviewed the patient's medical records. Lab Data Attestation: I reviewed the patient's lab results. Lab results narrative: This was not a clean catch and some bacteria present. As well as squamous epithelial cells. Patient has been on Macrobid for 3 days Labs: Lab Results 01/22/25 Range/Units 10:00 Urine Color Yellow Urine Appearance Clear Urine pH 5.5 (4.5-8.0) Ur Specific [place] 1.020 (1.000-1.035) Urine Protein Negative (Negative) Urine Glucose (UA) Negative (Negative) g/dL Urine Ketones Negative (NEGATIVE) Urine Occult Blood Negative (Negative) Urine Nitrate Negative (Negative) Urine Bilirubin Negative (NEGATIVE) Urine Urobilinogen 0.2 (0.2) E.U./dL Ur Leukocyte Esterase Negative (NEGATIVE) Urine RBC 0-1/hpf (0-5/HPF) Urine WBC 0-1/hpf (0-5/HPF) Ur Squamous Epith Cells 5-10 /hpf H (0-5/HPF) Urine Bacteria Few (2-10) H (None) Ur Culture Indicated? Cult not indicated Vol Urine Centrifuged 10ml (spun) Point of Care Testing Test Results Negative Imaging Data US - abdomen: My Impression: Agree with Radiology interpretation Radiologist's Impression: [address] [address] Ultrasound Report Signed Patient: Kathy Pulido MR#: [id number] : 1990 Acct:[id number] Age/Sex: 34 / F Date of Service: 01/22/25 Loc: ED Accession Number: [id number] Procedure: US abdomen limited Ordering Provider: Shirlene Valdovinos PA-C PROCEDURE: US ABDOMEN LIMITED INDICATIONS: RLQ pain @R medial anterior iliac crest +.5x1.5cm mass TECHNIQUE: Real-time focused scanning was performed of the abdomen, with image documentation. COMPARISON: None. FINDINGS: Scanning is performed at the area of concern involving the right hip/lump. At this site, no focal abnormality can be seen. IMPRESSION: Negative ultrasound. Dictated by: Josh Oshea M.D. on 01/22/2025 at 11:53 Approved by: Josh Oshea M.D. on 01/22/2025 at 11:54 [facility] Narrative Medical decision making narrative: This is a 34-year-old woman with a history of obesity, IUD in place, DEIDRE, UTI presenting with concern for point tenderness with specific movements at the anterior medial hip. Reviewed the patient's chart and recent visit, lab notes. Patient does do heavy lifting as part of her job in a [employer] center. Hernia is 1 possibility. We discussed imaging options including CT and ultrasound. Mutually elect to pursue ultrasound given patient's age and she has no infectious symptoms and exam is not suggestive of abdominal pelvic infectious process that would warrant CT scan and associated radiation. A urine dip was obtained today, squamous epithelial cells present and some bacteria but otherwise unremarkable. Her recent urine culture came back with numerous colony types and complete culture was not obtained. Prior urine cultures were positive for Staph saprophyticus. She has been on Macrobid for 3 days for UTI which was noted at her recent PCP visit this week at which time patient did also have urinary symptoms consistent with a UTI. Patient endorses that these symptoms have largely resolved after 3 days on Macrobid. Based on her exam and history I have extremely low suspicion for pyelonephritis, persistent/untreated UTI, appendicitis, or other intra-abdominal or pelvic process that would indicate need for labs or more advanced imaging. She has not had fevers, chills, change in stool habit, vomiting or other symptoms that would suggest a non localized process at the point of her pain. Musculoskeletal pain/inflammation versus lipoma versus lymphadenopathy most likely. Ultrasound shows no abnormality (no hernia or note of mass or other soft tissue abnormality on ultrasound results). Discussed this with the patient and suspect this is most likely a muscle strain/inflammation. A work note was provided for the patient for the next 5 days. She normally has Tuesdays and Wednesdays off. This will allow her up to 7 days of time to rest and recover and allow her symptoms to improve hopefully. Also referral to Physical therapy was placed after discussion with the patient. Return precautions provided, follow-up plan discussed, all questions answered. <Butch Stallworth MD - Last Filed: 01/23/25 15:05> Lab Data Labs: Lab Results 01/22/25 Range/Units 10:00 Urine Color Yellow Urine Appearance Clear Urine pH 5.5 (4.5-8.0) Ur Specific [place] 1.020 (1.000-1.035) Urine Protein Negative (Negative) Urine Glucose (UA) Negative (Negative) g/dL Urine Ketones Negative (NEGATIVE) Urine Occult Blood Negative (Negative) Urine Nitrate Negative (Negative) Urine Bilirubin Negative (NEGATIVE) Urine Urobilinogen 0.2 (0.2) E.U./dL Ur Leukocyte Esterase Negative (NEGATIVE) Urine RBC 0-1/hpf (0-5/HPF) Urine WBC 0-1/hpf (0-5/HPF) Ur Squamous Epith Cells 5-10 /hpf H (0-5/HPF) Urine Bacteria Few (2-10) H (None) Ur Culture Indicated? Cult not indicated Vol Urine Centrifuged 10ml (spun) Point of Care Testing Test Results Negative Discharge Plan Departure Patient Disposition: Home Clinical Impression: Muscle strain Activity Restrictions/Additional Instructions: *You have been diagnosed with [muscle strain] *What to do: *Please continue to take your regular medications as directed. [ ] New medication prescriptions sent to your pharmacy: [ ] [ ] New medication written as a paper prescription [X ] No new medications given *Please follow up with your primary care provider in 2-3 days, call for an appointment. Let them know you were seen in the Emergency Department and that we ask that you be seen in follow up. We will electronically transmit a record of today's note if your PCP is in our system. We performed ultrasound today after discussion together of imaging and evaluation options. This did not show an evidence of hernia or other abnormality of soft tissue at the location of your pain and tenderness. I do suspect you likely have a strained muscle and you are having pain and inflammation associated with movement because of this. I strongly recommend you try taking Tylenol and ibuprofen consistently every 4-6 hours for the next few days to see if this helps her symptoms. Continue to monitor carefully for new symptoms such as vomiting diarrhea new or worsening abdominal pain loss of appetite fevers chills or other symptoms of concern and make sure you seek re-evaluation if these develop. Otherwise try the heat we discussed Tylenol ibuprofen and I also did place a referral to physical therapy. Often times these types of injuries/pain do improve within about 10 days but it can take up to 3 weeks or so. Take it easy for the next few days you will be off work through Saturday of next week I provided a work note for today through Saturday and you are normally off Saturday and Saturday. This gives you nearly a full week of time to recover. And I have asked in the note that you be on light duty when you do returned to work late next week. If your symptoms are not improving by early next week you should look at getting scheduled with physical therapy and follow up with your PCP. If symptoms worsen make sure he is seek re-evaluation sooner. I hope you feel better soon. *If you do not have a primary care provider please contact the [facility] Resource line at [phone]. They will ask some questions about your medical history and help get you set up with a doctor in the community. *Return to Emergency Department if you should have any new, worsening or concerning symptoms, such as [fever greater than 101 F, shaking chills, worsening pain, persistent vomiting or other bothersome symptoms] Prescriptions: No Action albuterol sulfate 90 mcg/actuation HFA aerosol inhaler 2 puff inhalation Q4-6H Qty: 8.5 2RF Rx Instructions: EMERGENCY INHALER ferrous sulfate 325 mg (65 mg iron) tablet,delayed release (DR/EC) 325 mg PO DAILY Qty: 90 1RF Rx Instructions: or every other day with evening meal + citrus (vitamin C) aripiprazole 10 mg tablet 10 mg PO BEDTIME Qty: 30 2RF duloxetine 20 mg capsule,delayed release(DR/EC) 40 mg PO DAILY Qty: 180 3RF dextroamphetamine-amphetamine 20 mg tablet 20 mg PO BID Qty: 60 0RF Rx Instructions: ok to skip doses. skip weekends and holidays if possible. nitrofurantoin macrocrystal 100 mg capsule 100 mg PO BID 7 Days Qty: 14 0RF Rx Instructions: must administer with a meal/food Referrals: [facility] [Provider Group] Referral Note: R anterior hip pain w/extension/lifting. Negative US for hernia Clinical Impression: Muscle strain Celina Escamilla MD [Primary Care Provider, Family Practice] Stand Alone Forms: Patient Portal/API, Work Release Note ED Sign-out <Butch Stallworth MD - Last Filed: 01/23/25 15:05> Cosign ED Attending Lizzie Attestation: I was readily available for consultation at all times. I agree with assessment and plan of care
--- NOTE | 2025-01-22 11:28 | DI.US.S_ITS ---
PROCEDURE: US ABDOMEN LIMITED INDICATIONS: RLQ pain @R medial anterior iliac crest +.5x1.5cm mass TECHNIQUE: Real-time focused scanning was performed of the abdomen, with image documentation. COMPARISON: None. FINDINGS: Scanning is performed at the area of concern involving the right hip/lump. At this site, no focal abnormality can be seen. IMPRESSION: Negative ultrasound. Dictated by: Josh Oshea M.D. on 01/22/2025 at 11:53 Approved by: Josh Oshea M.D. on 01/22/2025 at 11:54
[2025-01-22 12:02] VITALS: BP 101/70; PULSE 65; RESP 16; O2SAT 99
== END 2025-01-22 13:24 | disposition home or self-care (01) ==
PROVIDERS: Emergency Medicine; Emergency Provider Student in an Organized Health Care Education/Training Program; PCP Family Medicine
DX: S39.011A Strain of muscle, fascia and tendon of abdomen, initial encounter (principal)
CPT/HCPCS: 76705; 81001; 81025; 99283

== ENCOUNTER → 2025-02-09 09:07 | Outpatient (CLI) | payer OTHER, SELFPAY ==
[2025-02-09 19:40] LABS: Hematocrit 42.4 % (36-46); Hemoglobin 14.4 g/dL (12.0-16.0); Mean Corpuscular HGB Conc 34.0 % (30-36); Mean Corpuscular Hemoglobin 32.5 PG (26-34); Mean Corpuscular Volume 95.5 fL (80-100); Platelet Count 379 X10^3/uL (150-400)
[2025-02-09 19:45] LABS: HEMOLYSIS 21 (0-50)
[2025-02-09 19:46] LABS: Add Manual Diff / Slide Review YES
[2025-02-09 19:51] LABS: Alanine Aminotransferase 35 IU/L (<35); Albumin 4.5 g/dL (3.5-5.0); Albumin Globulin Ratio 1.6 (1.0-2.8); Alkaline Phosphatase 84 U/L (38-126); Blood Urea Nitrogen 14 mg/dL (7-17); Calcium 9.3 mg/dL (8.4-10.2); Carbon Dioxide 24 mmol/L (22-32); Chloride 105 mmol/L (98-107); Cholesterol 240 mg/dL (140-199); Estimated Glomerular Filt Rate > 60 mL/min (>60); Globulin 2.8 g/dL (1.7-4.1); Glucose 82 mg/dL (70-99); HDL Cholesterol 59 mg/dL (40-60); HEMOLYSIS 22 (0-50); Potassium 4.4 mmol/L (3.4-5.1); Sodium 138 mmol/L (137-145); Total Protein 7.3 g/dL (6.3-8.2); Triglycerides 48 mg/dL (35-150)
[2025-02-09 20:20] LABS: Atypical Lymphocytes Percent 2.0 %; Band Neutrophils Percent 2.0 % (3-7); Basophils Percent Manual 1.0 % (0-1); Eosinophils Percent Manual 1.0 % (2-4); Lymphocytes Percent Manual 36.0 % (25-45); Monocytes Percent Manual 7.0 % (2-11); Neutrophils Absolute Manual 2915 /uL (3000-5900); RBC Morphology Normal Morphology; Segmented Neutrophils Percent 51.0 % (38-70); Total Cells Counted 100
[2025-02-09 20:21] LABS: Thyroid Stimulating Hormone 3.19 uIU/mL (0.47-4.68)
[2025-02-09 20:24] LABS: Ferritin 74 ng/mL (6-137)
[2025-02-09 20:42] LABS: Iron 121 ug/dL (37-170)
[2025-02-09 20:45] LABS: Hemoglobin A1C% w Est Avg Glu 4.9 % (4.0-6.0)
[2025-02-09 21:00] LABS: Percent Iron Saturation 35 % (15-50); Total Iron Binding Capacity 343 ug/dL (265-497); Transferrin 275 mg/dL (206-381)
== END ==
PROVIDERS: PCP Family Medicine; Visit Provider Family Medicine
DX: R79.0 Abnormal level of blood mineral (principal); F31.9 Bipolar disorder, unspecified; R79.89 Other specified abnormal findings of blood chemistry; E78.2 Mixed hyperlipidemia; G47.61 Periodic limb movement disorder; Z79.899 Other long term (current) drug therapy
CPT/HCPCS: 80053; 80061; 82728; 83036; 83540; 83550; 84443; 85007; 85025